=== PATIENT | female | born 2000 | race Hispanic/Latino ===

== ENCOUNTER 2019-02-06 13:16 | Emergency (ER) | payer OTHER, SELFPAY ==
[2019-02-06] MEDS ORDERED: Ibuprofen 200 MG TAB ONE (15:35)
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
== END 2019-02-06 16:28 | disposition home or self-care (01) ==
LOC: ERS 13:16
DX: M62.838 Other muscle spasm (principal); M54.5 Low back pain; V43.92XA Unspecified car occupant injured in collision with other type car in traffic accident, initial encounter
CPT/HCPCS: 72040; 72072; 72100